=== PATIENT | male | born 2000 | race Caucasian/White ===

== ENCOUNTER 2021-05-16 18:53 | Emergency (ER) | payer OTHER ==
[~2021-05-16] VITALS: Ht 157.5 cm; Wt 74.8 kg
--- NOTE | 2021-05-16 19:10 | NUR ---
PT BIB RA 89 C/O DIARRHEA X1 WEEK AND EPIGASTRIC PAIN. A/O X4, NO SOB OR LABORED BREATHING, AFEBRILE. DENIES CP/PRESSURE. NO N/V. CLEAR SPEECH/COMPLETE SENTENCES.
--- NOTE | 2021-05-16 19:11 | NUR ---
DR. BESS AT BEDSIDE, MSE IN PROGRESS.
[2021-05-16] MEDS ORDERED: IV NORMAL SALINE 1000 ML BAG IV ONE (19:15)
[2021-05-16] MEDS ORDERED: PANTOPRAZOLE SODIUM 40 MG VIAL IV ONE (19:15)
[2021-05-16] MEDS ORDERED: ONDANSETRON 4 MG/2 ML VIAL IV ONE (19:15)
[2021-05-16 19:29] LABS: HEMATOCRIT 43.2 % (36.7-47.1); MEAN CORPUSCULAR HEMOGLOBIN 29.7 uug (23.8-33.4); PLATELET COUNT (AUTO) 289 K/uL (152-348)
[2021-05-16] MEDS ORDERED: ONDANSETRON 4 MG/2 ML VIAL ONE (19:35)
[2021-05-16 19:36] LABS: CREATININE 0.8 mg/dL (0.6-1.3); POTASSIUM 3.7 mmol/L (3.5-5.1)
[2021-05-16] MEDS ORDERED: PANTOPRAZOLE SODIUM 40 MG VIAL ONE (19:36)
[2021-05-16 19:41] LABS: BILIRUBIN,DIRECT 0.2 mg/dL (0.0-0.2); BILIRUBIN,TOTAL 0.6 mg/dL (0.2-1.0); TOTAL PROTEIN, SERUM 7.6 g/dL (6.4-8.2)
[2021-05-16] MEDS ORDERED: IV NS 1000 ML 1,000 ML IV ONE (21:00)
[2021-05-16] MEDS ORDERED: FAMO-132 PO (22:09)
--- NOTE | 2021-05-16 22:28 | NUR ---
Patient discharged to home in stable condition. Written and verbal after care instructions given. Patient verbalizes understanding of instructions. Stressed follow up or return to ER for worsening s/s. Denied N/V/D or any abdominal discomfort at d/c. Steady gait. Picked up by family.
[2021-05-16 22:30] VITALS: BP 114/60
== END 2021-05-16 22:20 | disposition home or self-care (01) ==
LOC: ER 18:53
DX: R10.13 Epigastric pain (principal); Z83.3 Family history of diabetes mellitus
CPT/HCPCS: 36415; 80048; 80076; 83690; 85025; 96361; 96374; 96375; 99285; C9113; J2405; A4663; J7030